=== PATIENT | female | born 2005 | race Two or more races ===

== ENCOUNTER 2023-10-10 13:14 | Inpatient (IN) ==
--- NOTE | 2023-10-10 13:52 | Emergency Department Note ---
Impression & Plan Anxiety, Depression, Suicidal ideation ED Provider Note ED Provider Note NAME: CHAPO GARNER AGE:18 SEX: Female : 2005 ARRIVES VIA: INFORMANT: Patient ED PROVIDER(s): Kayla Abarca DO CHIEF COMPLAINT: Mental health evaluation HPI: This is a 18-year-old female presents emerged part with mental health evaluation. Patient referred here by [facility] due to concern for increasing anxiety and depression as well as admission of suicidal ideation. Patient states due to increased academic and financial stressors as well as her family coming to visit from [place], she has had increased anxiety and depression recently. She has began having thoughts of suicide again with a plan to overdose. She does have history of prior suicide attempt via overdose. She states she has been using marijuana recently to help with her anxiety and also to help sleep. She did try melatonin previously without success. She states she takes levothyroxine, no other medications. She states she is never sought other treatment for anxiety or depression. No prior inpatient mental health treatment. PAST MEDICAL HISTORY:See Below PAST SURGICAL HISTORY:See Below FAMILY HISTORY:See Below SOCIAL HISTORY:See Below HOME MEDICATIONS:See Below ALLERGIES:See Below VITALS:See Below PHYSICAL EXAMINATION: GENERAL: alert, well appearing, well nourished, no distress, non-toxic EYE EXAM: normal conjunctiva, PERRL and EOM's grossly intact OROPHARYNX: no exudate, no erythema, lips, buccal mucosa, and tongue normal and mucous membranes are moist NECK: supple, no nuchal rigidity, no adenopathy, non-tender LUNGS: Clear to auscultation. Normal chest wall mechanics, no w/r/r HEART: no murmurs, S1 normal and S2 normal ABDOMEN: abdomen soft, non-tender, normo-active bowel sounds, no masses, no rebound or guarding. SKIN: no rashes, petechiae, orbruising UPPER EXTREMITIES: upper extremities are grossly normal. FROM, nml pulses b/l. LOWER EXTREMITIES: No pitting edema. FROM, nml pulses b/l. NEURO EXAM: Normal sensorium, cranial nerves II-XII grossly intact, normal speech, no facial droop,nogross weakness of arms, no gross weakness of legs. Gross sensation intact. No ataxia. Vital Signs: reviewed and remarkable Differential Diagnosis: Differential diagnoses considered include mood disorder, infection, hypoglycemia, electrolyte abnormalities, substance abuse, dysrhythmia, depression, insomnia, as well as others. MEDICAL DECISION MAKING: This is an otherwise healthy 18 yo female who presents to the ER with increased anxiety, depression, and SI with plan to OD. Protocol labs/ua collected and reassuring. Patient evaluated by case aide and was in agreement with inpatient treatment. Patient referred to [facility] for treatment and signed out pending final disposition. Consultation(s): [] ER Treatment Provided: See below 1602: After being seen by case management she was referred to [facility]. Case signed out to Dr. Del Real pending final disposition. Diagnostics Interpreted By Me: -ECG: [] -Cardiac Monitoring: An order was placed for continuous cardiac monitoring. The monitor shows a rate of [] with [] rhythm. -Laboratory studies: As stated above and show below. -Imaging studies: [] Triage Nursing Note Reviewed Prior/Outside Records Reviewed Procedures: [] Critical Care: [] Past Med/Surg History Medical History (Updated 10/11/23 @ 13:34 by Juana Patel MD) No active medical problems Social History Smoking Status: Never smoker Preferred Language: Paraguayan Communication Ability: Effective Principal Android Developer Required: No Beliefs That Will Affect Care: Cultural Feels Safe at Home: Yes Gender Identity: Female Assistive Devices: None Allergies Allergies Allergy/AdvReac Type Severity Reaction Status Date / Time No Known Allergies Allergy Verified 10/10/23 16:04 Home Meds Home Medications Medication Instructions Recorded Confirmed levothyroxine 100 mcg tablet 100 mcg PO DAILY 10/10/23 10/10/23 sertraline 100 mg tablet 100 mg PO DAILY 10/10/23 10/10/23 sertraline 50 mg tablet 75 mg PO DAILY 10/10/23 10/10/23 Results & Data (ED) Vital Signs Vital Signs - 24 hr 10/10/23 13:19 10/10/23 15:45 Temperature 36.8 C Temperature Source Oral Pulse Rate 91 H Pulse Rate [Finger] 86 Pulse Rhythm Regular Pulse Strength Normal Respiratory Rate 18 18 Respiratory Effort / Characteristics Non-Labored Respiratory Depth Normal Blood Pressure 142/71 H Blood Pressure [Left Arm] 127/71 Blood Pressure Mean 94 Blood Pressure Mean [Left Arm] 89 Blood Pressure Position Sitting Pulse Oximetry 97 98 Oxygen Delivery Method Room Air Room Air Sepsis Recent Fever Within 48 Hours No Sepsis New/Unexplained Change in Mental Status No Sepsis Action Taken by Nursing No Action Required Laboratory Data 10/10/23 13:44 10/10/23 13:44 Lab Results 10/10/23 10/10/23 10/10/23 Range/Units 13:43 13:44 14:36 WBC 11.82 H (4.8-10.8) K/ul RBC 5.12 (4.20-5.40) M/uL Hgb 11.5 L (12.0-16.0) g/dl Hct 36.8 L (37.0-47.0) % MCV 71.9 L (80.0-100.0) fL MCH 22.5 L (25.0-34.0) pg MCHC 31.3 L (32.0-36.0) g/dL RDW Std Deviation 38.5 (36.4-46.3) fL RDW Coeff of Kalen 15.1 H (11.5-14.5) % Plt Count 348 (130-400) K/uL MPV 11.7 (9.4-12.4) fL Immature Gran % (Auto) 0.3 % Neut % (Auto) 72.8 % Lymph % (Auto) 20.7 % [place] % (Auto) 5.1 % Eos % (Auto) 0.5 % Baso % (Auto) 0.6 % Neut # (Auto) 8.60 H (1.40-6.50) K/uL Lymph # (Auto) 2.45 (1.20-3.40) K/uL [place] # (Auto) 0.60 H (0.11-0.59) K/uL Eos # (Auto) 0.06 (0.00-0.50) K/uL Baso # (Auto) 0.07 (0.00-0.20) K/uL Immature Gran # (Auto) 0.04 (0.01-0.20) K/uL Sodium 135 L (136-145) mmol/L Potassium 3.6 (3.5-5.1) mmol/L Chloride 103 (98-107) mmol/L Carbon Dioxide 22 (21-32) mmol/L Anion Gap 10 (3-11) BUN 10 (6-23) mg/dl Creatinine 0.68 (0.6-1.2) mg/dl Est Cr Clr Drug Dosing 149.7 ml/min Est GFR ( Amer) 145.9 ml/min Est GFR (Non-Af Amer) 125.9 ml/min BUN/Creatinine Ratio 14.7 (10-20) Glucose 134 H (70-99(Fasting)) mg/dl Calcium 9.1 (8.6-10.3) mg/dl Total Bilirubin 0.5 (0.2-1.0) mg/dl AST 12 L (13-39) U/L ALT 11 (7-52) U/L Alkaline Phosphatase 75 (34-104) U/L Total Protein 8.0 (6.0-8.3) gm/dl Albumin 4.1 (3.4-5.0) gm/dl Globulin 3.9 (2.5-4.0) gm/dl Albumin/Globulin Ratio 1.1 (0.9-2) TSH 0.306 (0.300-4.500) uIu/ml HCG, Qual Negative (Negative) Urine Color Yellow Urine Appearance Cloudy A (Clear) Urine pH 6.0 (4.5-7.5) Ur Specific [place] 1.014 (1.000-1.030) Urine Protein Negative (Negative) Urine Glucose (UA) Negative (Negative) Urine Ketones 1+ H (Negative) Urine Blood Negative (Negative) Urine Nitrite Negative (Negative) Urine Bilirubin Negative (Negative) Urine Urobilinogen Negative (Negative) Ur Leukocyte Esterase 1+ H (Negative) Urine WBC (Auto) 10-30 H (0-5) /hpf Urine RBC (Auto) 0-4 (0-4) /hpf U Hyaline Cast (Auto) 0 (0-5) /lpf U Epithel Cells (Auto) >30 H (0-5) /lpf Urine Bacteria (Auto) 1+ H (Negative) Salicylates < 3.0 L (3.0-30) mg/dl Urine Opiates Screen Neg (Neg) Ur Methadone, Qual Neg (Neg) Acetaminophen < 3 L (10-30) ug/ml Urine Barbiturates Neg (Neg) Ur Phencyclidine (PCP) Neg (Neg) U Amphetamin/Meth Scrn Neg (Neg) MDMA (Ecstasy) Screen Neg (Neg) U Benzodiazepines Scrn Neg (Neg) Ur Cocaine Metabolite Neg (Neg) U Marijuana (THC) Screen Pos H (Neg) Ethyl Alcohol mg/dL < 10.0 (<10.0) mg/dl SARS-CoV-2, RNA, NAAT NEGATIVE (NEGATIVE) Administered Medications Levothyroxine Sodium (Levothyroxine Sodium 100 Mcg Tablet) 100 mcg PO DAILYBB LUIS Stop: 11/10/23 07:59 Last Admin: 10/11/23 08:20 Dose: 100 mcg Documented By: TLF Discontinued Medications Lorazepam (Lorazepam 0.5 Mg Tab) 0.5 mg PO NOW ONE Stop: 10/10/23 16:36 Last Admin: 10/10/23 16:49 Dose: 0.5 mg Documented By: MERCEDEZ Sertraline HCl (Sertraline Hcl 50 Mg Tablet) 75 mg PO ONE ONE Stop: 10/11/23 13:16 Last Admin: 10/11/23 13:58 Dose: 75 mg Documented By: TLF Discharge Plan Visit Data Chief Complaint: Anxiety Stated Complaint: ANXIETY ED Provider: Alejandro Del Real Discharge Problem: Anxiety, Depression, Suicidal ideation Patient Disposition: Admitted As Inpatient Discharge Instructions Interventions: ED Discharge Assessment Last Done: 10/10/23 16:58 Discharge Problem: Depression Qualifiers: Depression Type: unspecified Qualified Code(s): F32.A - Depression, unspecified
[2023-10-10 14:08] LABS: Basophils # (auto) 0.07 K/uL (0.00-0.20); Basophils % (auto) 0.6 %; Eosinophils # (auto) 0.06 K/uL (0.00-0.50); Eosinophils % (auto) 0.5 %; Hematocrit (blood only) 36.8 % (37.0-47.0); Hemoglobin 11.5 g/dl (12.0-16.0); Immature Granulocytes # (auto) 0.04 K/uL (0.01-0.20); Immature Granulocytes % (auto) 0.3 %; Lymphocytes # (auto) 2.45 K/uL (1.20-3.40); Lymphocytes % (auto) 20.7 %; Mean Corpuscular Hemoglobin 22.5 pg (25.0-34.0); Mean Corpuscular Hgb Conc 31.3 g/dL (32.0-36.0); Mean Corpuscular Volume 71.9 fL (80.0-100.0); Mean Platelet Volume 11.7 fL (9.4-12.4); Monocytes % (auto) 5.1 %; Neutrophils % (auto) 72.8 %; Platelet Count 348 K/uL (130-400); RDW Coefficient of Variation 15.1 % (11.5-14.5); RDW Standard Deviation 38.5 fL (36.4-46.3); Red Blood Count 5.12 M/uL (4.20-5.40); White Blood Count 11.82 K/ul (4.8-10.8)
[2023-10-10 14:17] LABS: Albumin Globulin Ratio 1.1 (0.9-2); Albumin Level 4.1 gm/dl (3.4-5.0); BUN Creatinine Ratio 14.7 (10-20); Bilirubin,Total 0.5 mg/dl (0.2-1.0); Calcium 9.1 mg/dl (8.6-10.3); Creatinine Clr Calc Pharmacy 149.7 ml/min; Est GFR (African American) 145.9 ml/min; Est GFR (Non-African American) 125.9 ml/min; Globulin 3.9 gm/dl (2.5-4.0); Potassium 3.6 mmol/L (3.5-5.1)
[2023-10-10 14:21] LABS: Pregnancy Test, Serum Negative (Negative)
[2023-10-10 14:30] LABS: Acetaminophen < 3 ug/ml (10-30); Salicylate < 3.0 mg/dl (3.0-30)
[2023-10-10 14:31] LABS: Thyroid Stimulating Hormone 0.306 uIu/ml (0.300-4.500)
[2023-10-10 14:55] LABS: Appearance Urine Cloudy (Clear); Bacteria Urine Automated 1+ (Negative); Bilirubin Urine Negative (Negative); Blood Urine Negative (Negative); Cast Urine Automated 0 /lpf (0-5); Color Urine Yellow; Epithelial Cell Urine Auto >30 /lpf (0-5); Glucose Urine UA Negative (Negative); Ketones Urine 1+ (Negative); Leukocyte Esterase Urine 1+ (Negative); Nitrite Urine Negative (Negative); Protein Urine Negative (Negative); RBC Urine Automated 0-4 /hpf (0-4); Specific Gravity Urine 1.014 (1.000-1.030); Urobilinogen Urine Negative (Negative)
[2023-10-10 15:34] LABS: Amphetamines+Metham, Urine Neg (Neg); Barbiturates, Urine Neg (Neg); Benzodiazepine, Urine Neg (Neg); Cocaine, Urine Neg (Neg); MDMA (Ecstacy), Urine Neg (Neg); Marijuana, Urine Pos (Neg); Methadone, Urine Neg (Neg); Opiate, Urine Neg (Neg); Phencyclidine, Urine Neg (Neg)
--- NOTE | 2023-10-10 16:22 | Emergency Department Note ---
ED Visit Note I assumed care at the change of shift. The patient had presented suicidal with a plan to overdose. She was voluntary. She was felt medically clear. A bed search was underway. The patient was accepted voluntarily by [facility] our psychiatric floor, the appropriate paperwork was completed and signed. .
[2023-10-10] MEDS ORDERED: LORazepam 0.5 MG TAB PO ONE (16:35)
[2023-10-10] MEDS ORDERED: ACETAMINOPHEN 325 MG TAB PO PRN (17:19)
[2023-10-10] MEDS ORDERED: BISMUTH SUBSALICYLATE LIQD 236 ML PO PRN (17:19)
[2023-10-10] MEDS ORDERED: ALUMINUM/MAGNESIUM SUSP 30 ML UDC PO PRN (17:19)
[2023-10-10] MEDS ORDERED: hydrOXYzine HCl 25 MG TAB PO PRN ×2 (17:19)
[2023-10-10] MEDS ORDERED: MAGNESIUM HYDROXIDE SUSP 30 ML UDC PO PRN (17:19)
[2023-10-10] MEDS ORDERED: SODIUM CHLORIDE 0.65% NA SOLN 45 ML (OCEAN) PRN (17:19)
[2023-10-11] MEDS: LEVOTHYROXINE SODIUM 100 MCG TABLET PO SCH (08:20)
[2023-10-11] MEDS ORDERED: SERTRALINE HCL 50 MG TABLET PO ONE (13:15)
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
[2023-10-12] MEDS: LEVOTHYROXINE SODIUM 100 MCG TABLET PO SCH (08:46)
--- NOTE | 2023-10-12 17:44 | Psychiatric Progress Note ---
Date of Service October 12, 2023 Impression / Recommendations Impression 18 yo female with reported hx of PTSD, presents with recurrent SI with plan to tirate Zoloft 10/14/23. She is adamant that she did not want inpatient treatment and unable to further assess PTSD symptoms at this time. 10/12/2023: Pt reports chronic suicidal thoughts, on which she says she's never acted and which she insists were no different on the day of admission than at baseline. She's unable to identify why her therapist (who she says is aware of these chronic thoughts) was so insistent she go to the ED for assessment but is willing to acknowledge that she might well have said something different or di fferently that increased the therapist's level of concern. She says that today she feels "a little better than usual", which she attributes to the structured setting. Has been in the process of titrating sertraline to a target of 100 mg (on 75 mg at admission). Reviewed several treatment options including possibility of SNRI which might be more effective for generalized anxiety. She would like to continue with the existing outpatient plan of sertraline. Was hoping I'd discharge her today. Discussed that I think she's minimizing the potential severity of her suicidal thoughts and reported overdose plans, but agreed to consider discharge tomorrow contingent on formulating an appropriate aftercare plan. (1) Depression: (2) Anxiety: Plan The patient was admitted to the [facility] ([facility] mental health unit) on q15 min checks (behavioral with suicide precautions) for safety. The patient will participate in group, recreational, and milieu therapies and will be offered additional individual and family sessions as clinically appropriate. The patient signed a 72 hr notice to withdraw from treatment. Notified outpatient prescriber as unclear she can continue if not following recs and [facility] may not be intensive enough for step down from hospital, particularly if not completing a course of treatment. It is medically necessary she remain hospitalized for additional monitoring and safety planning. 10/12/2023: * increase sertraline to 100 mg daily - prior to admission medication at 75 mg daily upon admission * In addition to the screening labs ordered in the ED, will order vitamin B12 level, folic acid level, 25-OH vitamin D level, ESR to rule out conditions more pertinent to psychiatric symptoms. 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 and was admitted on 10/10/23 17:06 on a 201 voluntary commitment for SI with plan to OD. Chief Complaint "I feel a lot better". Review of Systems Sleep Information Total Hours of Sleep: 6.5 Sleep Comments: asleep at 1915 and then awake most of night after 0100 Meal Information Percent Meal Consumed - Breakfast: 100 Percent Meal Consumed - Lunch: 100 Percent Meal Consumed - Dinner: 100 Subjective Subjective The patient was seen and assessed and interval progress reviewed in a multidisciplinary team meeting with the treatment team. For details, see the "Impression" section. Overall I spent a total of 59 minutes for this inpatient follow-up including review of chart records, review of test results, direct evaluation of the patient [id number], counseling the patient, medication education with the patient, risk assessment, discussion during interdisciplinary treatment rounds, and documentation in the electronic health record. Physical Exam Psychiatric Orientation: alert, oriented to person, oriented to place, oriented to time and cooperative Apperance: appropriately dressed and appropriately groomed Eye Contact: good eye contact Motor Behavior: no abnormal motor movements Speech: normal rate/rhythm/volume of speech Affect: + depressed affect Mood: + depressed mood and + anxious mood Thought Process: goal directed thought process Thought Content: reality based without delusions Suicidal Thoughts: denies suicidal thoughts (currently, admits to chronic); + reports suicidal plan (would be to OD but denies intent) Homicidal Thoughts: denies homicidal thoughts Hallucinations: no auditory hallucinations and no visual hallucinations Cognition: attention grossly intact and language grossly intact Estimated Intelligence: consistent with education level Insight: + fair insight Judgment: + limited judgement Vital Signs (Past 24 Hours) Last Vital Signs Temp 36.6 C 10/12/23 06:45 Pulse 99 H 10/12/23 06:45 Resp 18 10/12/23 06:45 BP 132/82 10/12/23 06:45 Pulse Ox 96 10/12/23 06:45 O2 Del Method Room Air 10/12/23 06:45 Results & Data ([facility]) Current Inpatient Medications Current Inpatient Medications: Current Inpatient Medications Acetaminophen (Acetaminophen 325 Mg Tab) 650 mg PO Q4H PRN PRN Reason: Headache or Minor Fever Stop: 11/09/23 17:18 Al Hydrox/Mg Hydrox/Simethicone (Aluminum/Magnesium Susp 30 Ml Udc) 30 ml PO Q4H PRN PRN Reason: GI Upset Stop: 11/09/23 17:18 Bismuth Subsalicylate (Bismuth Subsalicylate Liqd 236 Ml) 15 ml PO PRN PRN PRN Reason: Loose Stool Stop: 11/09/23 17:18 Hydroxyzine HCl (Hydroxyzine Hcl 25 Mg Tab) 50 mg PO HSZ PRN PRN Reason: Insomnia Stop: 11/09/23 17:18 Hydroxyzine HCl (Hydroxyzine Hcl 25 Mg Tab) 25 mg PO Q4H PRN PRN Reason: Anxiety Stop: 11/09/23 17:18 Levothyroxine Sodium (Levothyroxine Sodium 100 Mcg Tablet) 100 mcg PO DAILYBB LUIS Stop: 11/10/23 07:59 Last Admin: 10/12/23 08:46 Dose: 100 mcg Magnesium Hydroxide (Magnesium Hydroxide Susp 30 Ml Udc) 30 ml PO DAILY PRN PRN Reason: Constipation Stop: 11/09/23 17:18 Sodium Chloride (Sodium Chloride 0.65% Na Soln 45 Ml ([place])) 1 - 2 sprays NA PRN PRN PRN Reason: Nasal Dryness/Congestion Stop: 11/09/23 17:18 Mental Health & Subst Abuse Tx Therapist Name of Therapist: HORACE Bradley Date of Therapist Appointment: UTO Post Discharge Appointments Primary Care Physician Name Of Family Doctor/PCP: VANNESSAS (1) Depression Depression Type: unspecified Qualified Code(s): F32.A - Depression, unspecified
[2023-10-13 08:22] LABS: Marijuana Quant, GCMS Urine 1469 ng/mL (<5)
[2023-10-13] MEDS: LEVOTHYROXINE SODIUM 100 MCG TABLET PO SCH (09:00)
[2023-10-13] MEDS ORDERED: SERTRALINE HCL 100 MG TABLET PO SCH (09:00)
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
== END 2023-10-13 10:55 | disposition home or self-care (01) | DRG 881 ==
LOC: ED 13:14 → 3S 16:58